=== PATIENT | female | born 1985 | race Caucasian/White ===

== ENCOUNTER 2018-05-06 17:07 | Inpatient (IN) | payer OTHER ==
[~2018-05-06] VITALS: Ht 177.8 cm; Wt 94.1 kg
[2018-05-06 17:49] VITALS: BP 114/86
[2018-05-06] MEDS ORDERED: PREN1TAB60 PO (17:54)
[2018-05-06] MEDS ORDERED: DOXY25TA18 PO (17:54)
[2018-05-06] MEDS ORDERED: LORA10CA PO (17:54)
[2018-05-06] MEDS ORDERED: PYRI200T5 PO (17:54)
[2018-05-06] MEDS ORDERED: OXYTOCIN 30U/ 0.9% NaCL 500ML 500 ML IV ONE (18:17)
[2018-05-06] MEDS ORDERED: NEWBORN KIT ONE (18:22)
[2018-05-06] MEDS ORDERED: OXYTOCIN 30U/ 0.9% NaCL 500ML 500 ML ONE (18:23)
[2018-05-06] MEDS ORDERED: MISOPROSTOL 200 MCG TABLET ONE (18:24)
[2018-05-06] MEDS ORDERED: TERBUTALINE 1 MG/ML, 1ML IVPush PRN (18:30)
[2018-05-06] MEDS ORDERED: CALCIUM CARBONATE 500 MG TAB.CHEW PO PRN (18:30)
[2018-05-06] MEDS ORDERED: FENTANYL PF 100 MCG/2ML IVPush PRN (18:30)
[2018-05-06] MEDS ORDERED: PENICILLIN GK 5,000,000 UNITS in DEXTROSE 5% 100 ML IVPB ONE (18:30)
[2018-05-06] MEDS ORDERED: FENTANYL PF 100 MCG/2ML IV PRN (18:30)
[2018-05-06] MEDS: LACTATED RINGERS 1,000 ML IV SCH (18:39)
[2018-05-06] MEDS: OXYTOCIN 30U/ 0.9% NaCL 500ML 500 ML IV PRN (18:53)
[2018-05-06 19:17] LABS: BASOPHILS # (AUTO) 0.02 x10^3/uL (0-0.1); BASOPHILS % (AUTO) 0 % (0-1); EOSINOPHILS # (AUTO) 0.05 x10^3/uL (0-0.4); EOSINOPHILS % (AUTO) 1 % (1-7); LYMPHOCYTES # (AUTO) 1.27 x10^3/uL (1-3.4); LYMPHOCYTES % (AUTO) 14 % (22-44); MD MORPH REVIEW ONLY; MEAN CORPUSCULAR HEMOGLOBIN 31.1 pg (27.0-34.8); MEAN CORPUSCULAR HGB CONC 34.1 g/dL (32.4-35.8); MEAN CORPUSCULAR VOLUME 91.2 fL (80-100); MONOCYTES # (AUTO) 0.45 x10^3/uL (0.2-0.8); MONOCYTES % (AUTO) 5 % (2-9); NEUTROPHILS # (AUTO) 7.63 x10^3/uL (1.8-6.8); NEUTROPHILS % (AUTO) 81 % (42-75); RED BLOOD COUNT 4.17 x10^6/uL (3.82-5.3); RED CELL DISTRIBUTION WIDTH 12.9 % (9.6-15.2)
[2018-05-06 19:18] LABS: MEAN PLATELET VOLUME 10.3 fL (7.4-10.4); PLATELET COUNT 84 x10^3/uL (130-400)
[2018-05-06 19:19] LABS: <PLATELET ESTIMATE> DECREASED; ANISOCYTOSIS 1+; LARGE PLATELETS 1+; POLYCHROMASIA 1+
[2018-05-06] MEDS ORDERED: ACETAMINOPHEN 325 MG TABLET ONE (21:53)
[2018-05-06] MEDS ORDERED: ACETAMINOPHEN 325 MG TABLET PO PRN (22:00)
[2018-05-06] MEDS: PENICILLIN GK 2,500,000 UNITS in DEXTROSE 5% 100 ML IVPB SCH (23:04)
[2018-05-07] MEDS: LACTATED RINGERS 1,000 ML IV SCH ×3 (00:54→23:45)
[2018-05-07] MEDS ORDERED: FENTANYL/BUPIV./NS/PF 250 ML EPIDCONT ONE (02:45)
[2018-05-07] MEDS ORDERED: BUPIVACAINE 0.25% ONE ×2 (03:14→18:42)
[2018-05-07] MEDS ORDERED: FENTANYL PF 100 MCG/2ML ONE (03:14)
[2018-05-07] MEDS: PENICILLIN GK 2,500,000 UNITS in DEXTROSE 5% 100 ML IVPB SCH ×4 (03:52→17:09)
[2018-05-07] MEDS ORDERED: ONDANSETRON 2MG/ML, 2ML ONE ×2 (03:54→15:00)
[2018-05-07] MEDS: ONDANSETRON 2MG/ML, 2ML IVPush PRN ×2 (03:56→15:05)
[2018-05-07] MEDS ORDERED: FENTANYL/BUPIV./NS/PF 250 ML EPIDCONT SCH (04:25)
[2018-05-07] MEDS ORDERED: EPHEDRINE 50 MG/ML, 1ML IVPush PRN (04:30)
[2018-05-07] MEDS ORDERED: ONDANSETRON 2MG/ML, 2ML IVPush PRN (04:30)
[2018-05-07] MEDS ORDERED: LACTATED RINGERS 1,000 ML IVBOLUS PRN (04:30)
[2018-05-07] MEDS: D5%-LACTATED RINGERS 1,000 ML IV SCH ×2 (08:25→17:22)
[2018-05-07] MEDS ORDERED: OXYTOCIN 30U/ 0.9% NaCL 500ML 500 ML ONE ×3 (08:37→22:59)
[2018-05-07] MEDS ORDERED: METOCLOPRAMIDE 5 MG/ML, 2ML ONE (17:37)
[2018-05-07] MEDS ORDERED: METOCLOPRAMIDE 5 MG/ML, 2ML IVPush PRN (18:00)
[2018-05-07] MEDS: OXYTOCIN 30U/ 0.9% NaCL 500ML 500 ML IV PRN (21:43)
[2018-05-07] MEDS ORDERED: METHYLERGONOVINE 0.2 MG/ML IM PRN (22:00)
[2018-05-07] MEDS ORDERED: ACETAMINOPHEN 325 MG TABLET PO PRN (22:00)
[2018-05-07] MEDS ORDERED: OXYcodone/APAP 5/325MG TABLET PO PRN (22:00)
[2018-05-07] MEDS ORDERED: ONDANSETRON 2MG/ML, 2ML IV PRN (22:00)
[2018-05-07] MEDS ORDERED: DOCUSATE 100 MG CAPSULE PO PRN (22:00)
[2018-05-07] MEDS ORDERED: MISOPROSTOL 200 MCG TABLET PR ONE (22:00)
[2018-05-07] MEDS ORDERED: IBUPROFEN 600 MG TABLET ONE (22:18)
[2018-05-07] MEDS ORDERED: OXYcodone/APAP 5/325MG TABLET ONE (22:19)
[2018-05-07] MEDS: IBUPROFEN 600 MG TABLET PO PRN (22:26)
[2018-05-07] MEDS: OXYTOCIN 30U/ 0.9% NaCL 500ML 500 ML IV SCH (23:45)
[2018-05-07 23:50] VITALS: BP 122/77
[2018-05-08 03:45] VITALS: BP 113/71
[2018-05-08] MEDS: LACTATED RINGERS 1,000 ML IV SCH ×3 (05:09→20:25)
[2018-05-08 05:59] LABS: MEAN CORPUSCULAR HEMOGLOBIN 30.6 pg (27.0-34.8); MEAN CORPUSCULAR HGB CONC 33.6 g/dL (32.4-35.8); MEAN CORPUSCULAR VOLUME 91.2 fL (80-100); MEAN PLATELET VOLUME 10.2 fL (7.4-10.4); PLATELET COUNT 82 x10^3/uL (130-400); RED BLOOD COUNT 3.74 x10^6/uL (3.82-5.3); RED CELL DISTRIBUTION WIDTH 12.9 % (9.6-15.2)
[2018-05-08 06:05] LABS: BASOPHILS # (AUTO) 0.02 x10^3/uL (0-0.1); BASOPHILS % (AUTO) 0 % (0-1); EOSINOPHILS # (AUTO) 0.06 x10^3/uL (0-0.4); EOSINOPHILS % (AUTO) 0 % (1-7); LYMPHOCYTES # (AUTO) 0.98 x10^3/uL (1-3.4); LYMPHOCYTES % (AUTO) 7 % (22-44); MD SCAN; MONOCYTES # (AUTO) 0.79 x10^3/uL (0.2-0.8); MONOCYTES % (AUTO) 6 % (2-9); NEUTROPHILS # (AUTO) 12.44 x10^3/uL (1.8-6.8); NEUTROPHILS % (AUTO) 87 % (42-75)
[2018-05-08] MEDS: IBUPROFEN 600 MG TABLET PO PRN ×3 (06:43→20:29)
[2018-05-08] MEDS: PRENATAL VIT/IRON/FA 1 EACH TABLET PO SCH (07:21)
[2018-05-08] MEDS: OXYTOCIN 30U/ 0.9% NaCL 500ML 500 ML IV SCH ×2 (07:40→13:13)
[2018-05-08 08:23] VITALS: BP 117/73
[2018-05-08] MEDS ORDERED: MEASLES,MUMPS&RUBELLA VACC/PF 0.5 ML SQ-VACC ONE ×2 (10:10→10:30)
[2018-05-08 11:41] VITALS: BP 122/68
[2018-05-08 20:30] VITALS: BP 122/83
[2018-05-09] MEDS: IBUPROFEN 600 MG TABLET PO PRN (02:31)
[2018-05-09] MEDS: OXYTOCIN 30U/ 0.9% NaCL 500ML 500 ML IV SCH (03:40)
[2018-05-09] MEDS: LACTATED RINGERS 1,000 ML IV SCH (04:25)
[2018-05-09] MEDS: PRENATAL VIT/IRON/FA 1 EACH TABLET PO SCH (09:00)
[2018-05-09] MEDS ORDERED: IBUP-1222 PO (10:49)
== END 2018-05-09 12:00 | disposition home or self-care (01) | DRG 807 ==
LOC: LDOP 17:07 → LDIP 18:29 → 2NW 05-07 23:41
PROVIDERS: ADMIT Obstetrics & Gynecology; ATTEND Obstetrics & Gynecology
PROC: 10E0XZZ Delivery of Products of Conception, External Approach (ICD-10-PCS; principal; 2018-05-07)
PROC: 0KQM0ZZ Repair Perineum Muscle, Open Approach (ICD-10-PCS; 2018-05-07)
PROC: 10H07YZ Insertion of Other Device into Products of Conception, Via Natural or Artificial Opening (ICD-10-PCS; 2018-05-07)
DX: O99.12 Other diseases of the blood and blood-forming organs and certain disorders involving the immune mechanism complicating childbirth (principal); Z37.0 Single live birth; D69.6 Thrombocytopenia, unspecified; Z3A.38 38 weeks gestation of pregnancy; O70.1 Second degree perineal laceration during delivery; O69.81X0 Labor and delivery complicated by cord around neck, without compression, not applicable or unspecified; Z23 Encounter for immunization
CPT/HCPCS: 36415; J7121; 85025; 86850; 86900; 89060; G0378; J2405; J2540; J2590; J2765; J7120; Q0114

== ENCOUNTER 2019-11-03 16:07 | Emergency (ER) | payer BC, OTHER ==
[~2019-11-03] VITALS: Ht 177.8 cm; Wt 110.0 kg
[~2019-11-03 16:07] MED LIST: DOXY25TA18 PO; IBUP-1222 PO; LORA10CA PO; PREN1TAB60 PO; PYRI200T5 PO
[2019-11-03 16:20] VITALS: BP 119/94
--- NOTE | 2019-11-03 16:43 | NUR ---
Pt arrives to ed with abd pain and right lower flank pain. Pt also reports lower right abd quadrant as most severe. Pt denies any truama. Pt reports pain was onset of today and no relief. Pt reports no medical complex hx. Pt connected to monitors and call light in reach. awatiign ua sample. Pt took a percocer prior to arrival for pain.
[2019-11-03 16:56] LABS: BASOPHILS # (AUTO) 0.03 x10^3/uL (0-0.1); BASOPHILS % (AUTO) 0 % (0-1); EOSINOPHILS # (AUTO) 0.09 x10^3/uL (0-0.4); EOSINOPHILS % (AUTO) 1 % (1-7); LYMPHOCYTES # (AUTO) 1.56 x10^3/uL (1-3.4); LYMPHOCYTES % (AUTO) 19 % (22-44); MD NO; MEAN CORPUSCULAR HEMOGLOBIN 26.9 pg (27.0-34.8); MEAN CORPUSCULAR HGB CONC 32.5 g/dL (32.4-35.8); MEAN CORPUSCULAR VOLUME 82.6 fL (80-100); MEAN PLATELET VOLUME 11.8 fL (7.4-10.4); MONOCYTES # (AUTO) 0.48 x10^3/uL (0.2-0.8); MONOCYTES % (AUTO) 6 % (2-9); NEUTROPHILS # (AUTO) 6.06 x10^3/uL (1.8-6.8); NEUTROPHILS % (AUTO) 74 % (42-75); PLATELET COUNT 169 x10^3/uL (130-400); RED CELL DISTRIBUTION WIDTH 15.4 % (9.6-15.2)
[2019-11-03 17:04] LABS: MICROSCOPIC AUTO
[2019-11-03 17:08] LABS: ANION GAP 10 mmol/L (5-15); CALCIUM 8.9 mg/dL (8.5-10.1); CHLORIDE 109 mmol/L (98-107); CREATININE 0.69 mg/dL (0.55-1.02)
== END 2019-11-03 18:58 | disposition home or self-care (01) ==
LOC: ED 16:43
DX: N83.291 Other ovarian cyst, right side (principal); N83.8 Other noninflammatory disorders of ovary, fallopian tube and broad ligament; R10.30 Lower abdominal pain, unspecified
CPT/HCPCS: 36415; 76830; 80048; 81001; 82040; 84703; 85025; 87086; 99284

== ENCOUNTER 2020-08-06 04:47 | Inpatient (IN) | payer BC, OTHER ==
[~2020-08-06] VITALS: Ht 177.8 cm; Wt 95.4 kg
[2020-08-06] MEDS ORDERED: FENTANYL PF 100 MCG/2ML IVPush PRN (05:30)
[2020-08-06] MEDS ORDERED: TERBUTALINE 1 MG/ML, 1ML SQ PRN (05:30)
[2020-08-06] MEDS ORDERED: FENTANYL PF 100 MCG/2ML IV PRN (05:30)
[2020-08-06] MEDS ORDERED: D5%-LACTATED RINGERS 1,000 ML IV SCH (05:30)
[2020-08-06] MEDS ORDERED: ONDANSETRON 2MG/ML, 2ML IVPush PRN (05:30)
[2020-08-06] MEDS ORDERED: OXYTOCIN 30U/ 0.9% NaCL 500ML 500 ML IV ONE (05:30)
[2020-08-06] MEDS ORDERED: CALCIUM CARBONATE 500 MG TAB.CHEW PO PRN (05:30)
[2020-08-06] MEDS ORDERED: TERBUTALINE 1 MG/ML, 1ML IVPush PRN (05:30)
[2020-08-06] MEDS ORDERED: LORA10TA75 PO (05:30)
[2020-08-06 05:32] VITALS: BP 119/80
[2020-08-06 05:33] LABS: BASOPHILS % (AUTO) 1 % (0-1); EOSINOPHILS % (AUTO) 2 % (1-7); LYMPHOCYTES % (AUTO) 25 % (22-44); MEAN CORPUSCULAR HEMOGLOBIN 31.1 pg (27.0-34.8); MEAN CORPUSCULAR HGB CONC 33.8 g/dL (32.4-35.8); MEAN PLATELET VOLUME 11.2 fL (7.4-10.4); MONOCYTES % (AUTO) 8 % (2-9); NEUTROPHILS % (AUTO) 65 % (42-75); RED BLOOD COUNT 4.11 x10^6/uL (3.82-5.3); RED CELL DISTRIBUTION WIDTH 13.1 % (9.6-15.2)
[2020-08-06] MEDS: LACTATED RINGERS 1,000 ML IV SCH ×3 (05:48→11:40)
[2020-08-06 06:30] LABS: PLATELET COUNT 119 x10^3/uL (130-400)
[2020-08-06] MEDS ORDERED: MISOPROSTOL 25 MCG TABLET VG PRN (06:30)
[2020-08-06] MEDS ORDERED: SODIUM CITRATE/CITRIC ACID 30 ML UDC PO PRN (06:30)
[2020-08-06] MEDS ORDERED: ALUMINUM/MAG/SIMETHICONE 30 ML UDC PO PRN (06:30)
[2020-08-06] MEDS ORDERED: METOCLOPRAMIDE 5 MG/ML, 2ML IVPush PRN (06:30)
[2020-08-06] MEDS ORDERED: OXYTOCIN 30U/ 0.9% NaCL 500ML 500 ML IV PRN (06:30)
[2020-08-06 06:31] LABS: MD SCAN
[2020-08-06] MEDS ORDERED: MISOPROSTOL 25 MCG TABLET ONE (06:38)
[2020-08-06] MEDS ORDERED: LIDOCAINE 1%, 20ML ONE (06:38)
[2020-08-06] MEDS ORDERED: MISOPROSTOL 200 MCG TABLET ONE (06:38)
[2020-08-06] MEDS ORDERED: OXYTOCIN 30U/ 0.9% NaCL 500ML 500 ML ONE ×2 (06:39→19:55)
[2020-08-06] MEDS ORDERED: NEWBORN KIT ONE (09:46)
[2020-08-06] MEDS ORDERED: FENTANYL/BUPIV./NS/PF 250 ML EPIDCONT ONE (10:39)
[2020-08-06] MEDS ORDERED: BUPIVACAINE 0.25% ONE (10:39)
[2020-08-06] MEDS ORDERED: LACTATED RINGERS 1,000 ML IVBOLUS PRN (11:00)
[2020-08-06] MEDS ORDERED: FENTANYL/BUPIV./NS/PF 250 ML EPIDCONT SCH (11:00)
[2020-08-06] MEDS ORDERED: NALOXONE 0.4 MG/ML, 1ML IVPush PRN (11:00)
[2020-08-06] MEDS ORDERED: LACTATED RINGERS 1,000 ML IV SCH ×2 (11:00→20:30)
[2020-08-06] MEDS ORDERED: EPHEDRINE 50 MG/ML, 1ML IVPush PRN (11:00)
[2020-08-06] MEDS ORDERED: ONDANSETRON 2MG/ML, 2ML ONE (11:36)
[2020-08-06] MEDS ORDERED: ACETAMINOPHEN 325 MG TABLET ONE (16:10)
[2020-08-06] MEDS: ACETAMINOPHEN 325 MG TABLET PO PRN (16:11)
[2020-08-06] MEDS ORDERED: IBUPROFEN 600 MG TABLET ONE (19:55)
[2020-08-06] MEDS: IBUPROFEN 800 MG TABLET PO PRN (20:00)
[2020-08-06] MEDS ORDERED: ONDANSETRON 2MG/ML, 2ML IV PRN (20:00)
[2020-08-06] MEDS ORDERED: ACETAMINOPHEN 325 MG TABLET PO PRN (20:00)
[2020-08-06] MEDS ORDERED: OXYTOCIN 30U/ 0.9% NaCL 500ML 500 ML IV SCH (20:00)
[2020-08-06] MEDS ORDERED: DOCUSATE 100 MG CAPSULE PO PRN (20:00)
[2020-08-06] MEDS ORDERED: RHOGAM FROM BLOOD BANK 1 NOTE EA IM/IV ONE (20:00)
[2020-08-06] MEDS ORDERED: BISACODYL 10 MG SUPP PR PRN (20:00)
[2020-08-06] MEDS ORDERED: MISOPROSTOL 200 MCG TABLET PR PRN (20:00)
[2020-08-06] MEDS ORDERED: OXYcodone/APAP 5/325MG TABLET PO PRN (20:00)
[2020-08-06] MEDS ORDERED: HYDROcodone/APAP 5/325 TABLET PO PRN (20:00)
[2020-08-06 21:40] VITALS: BP 109/75
[2020-08-07 01:32] VITALS: BP 116/75
[2020-08-07] MEDS: IBUPROFEN 800 MG TABLET PO PRN ×2 (02:02→10:32)
[2020-08-07] MEDS: ACETAMINOPHEN 325 MG TABLET PO PRN ×2 (05:55→10:32)
[2020-08-07 06:52] LABS: BASOPHILS % (AUTO) 0 % (0-1); EOSINOPHILS % (AUTO) 2 % (1-7); LYMPHOCYTES % (AUTO) 14 % (22-44); MEAN CORPUSCULAR HEMOGLOBIN 31.3 pg (27.0-34.8); MEAN CORPUSCULAR HGB CONC 34.1 g/dL (32.4-35.8); MEAN PLATELET VOLUME 11.9 fL (7.4-10.4); MONOCYTES % (AUTO) 6 % (2-9); NEUTROPHILS % (AUTO) 77 % (42-75); RED BLOOD COUNT 3.61 x10^6/uL (3.82-5.3); RED CELL DISTRIBUTION WIDTH 13.1 % (9.6-15.2)
[2020-08-07 06:55] VITALS: BP 118/76
[2020-08-07 07:20] LABS: MD SCAN; PLATELET COUNT 61 x10^3/uL (130-400)
[2020-08-07] MEDS ORDERED: IBUP-1222 PO (07:46)
[2020-08-07] MEDS ORDERED: PRENATAL VIT/IRON/FA 1 EACH TABLET PO SCH (09:00)
[2020-08-07 12:03] VITALS: BP 116/87
[2020-08-07 16:15] VITALS: BP 115/73
== END 2020-08-07 16:58 | disposition home or self-care (01) | DRG 807 ==
LOC: LDIP 04:47 → 2NW 21:32
PROVIDERS: ADMIT Obstetrics & Gynecology; ATTEND Obstetrics & Gynecology
PROC: 10E0XZZ Delivery of Products of Conception, External Approach (ICD-10-PCS; principal; 2020-08-06)
PROC: 0KQM0ZZ Repair Perineum Muscle, Open Approach (ICD-10-PCS; 2020-08-06)
PROC: 3E0R3BZ Introduction of Anesthetic Agent into Spinal Canal, Percutaneous Approach (ICD-10-PCS; 2020-08-06)
PROC: 00HU33Z Insertion of Infusion Device into Spinal Canal, Percutaneous Approach (ICD-10-PCS; 2020-08-06)
DX: O99.12 Other diseases of the blood and blood-forming organs and certain disorders involving the immune mechanism complicating childbirth (principal); Z37.0 Single live birth; D69.6 Thrombocytopenia, unspecified; Z20.822 Contact with and (suspected) exposure to COVID-19; O70.1 Second degree perineal laceration during delivery; Z3A.39 39 weeks gestation of pregnancy
CPT/HCPCS: 36415; 76815; 85025; 86592; 86850; 86900; 87635; G0378; J2405; J2590; J3010; J7120

== ENCOUNTER 2020-08-23 17:51 | Emergency (ER) | payer BC ==
[~2020-08-23] VITALS: Ht 177.8 cm; Wt 87.6 kg
[~2020-08-23 17:51] MED LIST changes: +LORA10TA75 PO
--- NOTE | 2020-08-23 18:46 | NUR ---
Report to [facility]
--- NOTE | 2020-08-23 18:55 | NUR ---
per erp no blood cultures prior to abx admin
[2020-08-23] MEDS ORDERED: ACETAMINOPHEN 500 MG TABLET ONE (18:59)
[2020-08-23] MEDS ORDERED: AMPICILLIN/SULBACTAM 3 GM in SODIUM CHLORIDE 0.9% 100 ML IV ONE (19:00)
--- NOTE | 2020-08-23 19:17 | NUR ---
pt medicated for pain per emar, abx started, ua and labs sent, pt to ultrasound at this time
[2020-08-23 19:24] LABS: BASOPHILS % (AUTO) 1 % (0-1); EOSINOPHILS % (AUTO) 1 % (1-7); LYMPHOCYTES % (AUTO) 13 % (22-44); MEAN CORPUSCULAR HEMOGLOBIN 31.2 pg (27.0-34.8); MEAN CORPUSCULAR HGB CONC 33.8 g/dL (32.4-35.8); MEAN PLATELET VOLUME 11.1 fL (7.4-10.4); MONOCYTES % (AUTO) 5 % (2-9); NEUTROPHILS % (AUTO) 81 % (42-75); PLATELET COUNT 81 x10^3/uL (130-400); RED BLOOD COUNT 4.64 x10^6/uL (3.82-5.3); RED CELL DISTRIBUTION WIDTH 12.7 % (9.6-15.2)
[2020-08-23 19:26] LABS: MD NO
[2020-08-23 19:30] LABS: MICROSCOPIC AUTO
[2020-08-23] MEDS ORDERED: ACETAMINOPHEN 500 MG TABLET PO/NG ONE (19:30)
[2020-08-23 19:32] LABS: ALANINE AMINOTRANSFERASE 23 U/L (12-78); ALBUMIN 3.7 g/dL (3.4-5.0); ANION GAP 6 mmol/L (5-15); CALCIUM 8.7 mg/dL (8.5-10.1); CHLORIDE 108 mmol/L (98-107)
[2020-08-23 19:34] LABS: ALKALINE PHOSPHATASE 73 U/L (45-117); BILIRUBIN,TOTAL 0.3 mg/dL (0.2-1.0); TOTAL PROTEIN 6.9 g/dL (6.4-8.2)
[2020-08-23] MEDS ORDERED: DICLOXACILLIN 250 MG CAPSULE PO ONE (20:00)
[2020-08-23] MEDS ORDERED: DICLOXACILLIN 500 MG CAPSULE PO ONE (20:00)
[2020-08-23 20:07] VITALS: BP 120/85
== END 2020-08-23 20:17 | disposition home or self-care (01) ==
LOC: ED 20:00
DX: N61.0 Mastitis without abscess (principal); R50.9 Fever, unspecified; R10.9 Unspecified abdominal pain; Z87.891 Personal history of nicotine dependence
CPT/HCPCS: 36415; 76642; 80053; 81001; 85025; 87086; 96365; 99284; J0295